=== PATIENT | female | born 1985 | race Caucasian/White ===

== ENCOUNTER 2020-02-23 16:25 | Inpatient (IN) ==
[~2020-02-23 16:25] MED LIST: fentaNYL CITRATE/PF 50 MCG/ML AMPUL ONE
[2020-02-28] MEDS ORDERED: DEXTROSE 5%-LACTATED RINGERS 1,000 ML IV PRN (14:47)
[2020-02-28] MEDS ORDERED: RINGER'S SOLUTION,LACTATED 1,000 ML IV ONE ×2 (14:47→19:18)
[2020-02-28] MEDS ORDERED: ONDANSETRON 4 MG TAB.RAPDIS PO PRN (14:47)
[2020-02-28] MEDS ORDERED: MISOPROSTOL 100 MCG TABLET VG PRN (14:47)
[2020-02-28] MEDS ORDERED: OXYTOCIN/DEXTROSE 5%-WATER 30 UNITS/500 ML BAG IV ONE (14:47)
[2020-02-28 15:32] LABS: Cocaine Ur Negative (NEGATIVE); Urine Barbiturate Negative (NEGATIVE); Urine Benzodiazepines Negative (NEGATIVE); Urine Opiates Negative (NEGATIVE); Urine PCP Negative (NEGATIVE); Urine THC Negative (NEGATIVE)
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
[2020-02-28] MEDS ORDERED: BUPIVACAINE HCL/0.9 % NACL/PF 250 ML EP PRN (17:11)
[2020-02-28] MEDS ORDERED: ONDANSETRON HCL/PF 2 MG/ML VIAL IV PRN (17:11)
[2020-02-28] MEDS ORDERED: NALOXONE HCL 1 MG/1 ML SYRG IV PRN (17:11)
[2020-02-28] MEDS ORDERED: fentaNYL CITRATE/PF 50 MCG/ML AMPUL IT SCH (17:15)
--- NOTE | 2020-02-28 18:02 | ANES ---
Post Anesthesia Assessment - Vital Signs Vitals: Last Vital Signs Temp 36.2 C 02/28/20 14:48 Pulse 82 02/28/20 14:48 Resp 18 02/28/20 14:48 BP 131/82 02/28/20 14:48 Pulse Ox 97 02/28/20 14:48 Airway Patency: Normal - Mental Status Level Of Consciousness: Awake - Pain Level Pain Score: 0 - N/V Assessment Nausea/Vomiting Presence: None Dehydration:: No
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
--- NOTE | 2020-02-28 18:03 | ANES ---
Post Anesthesia Discharge - Transfer of Care Transfer of Care handoff given to nurse: Yes - Anesthesia Post Op Note Anesthesia Post Op Note: Care transferred to OB RN
--- NOTE | 2020-02-28 18:04 | ANES ---
Anesthesia Procedure Note Procedure Note: ANESTHESIA PROCEDURE NOTE Date of Procedure: 02/28/2020 Time of procedure: 1744. Performed by: Khoa Sheldon CRNA Maintenance Technician: None. Preprocedure diagnosis: Active labor. Post procedure diagnosis: Same. Procedure: Insertion of labor epidural. Indications: The patient is a 34-year-old multigravida female in active labor requesting labor epidural for pain management. Findings: See below. Details of the procedure: The patient was placed in a sitting position. Back was prepped with DuraPrep. Patient was then draped in a sterile fashion. Lidocaine 1% was infiltrated to the skin and subcutaneous tissues at the level of the L3 4 interspace. The epidural space was identified using a 18-gauge Tuohy needle with [id number] technique. 20 mcg fentanyl was given intrathecally using a 27 ga. spinal needle. Epidural catheter was inserted without difficulty. Negative test dose was elicited using 5 mL of 1.5% preservative-free lidocaine plus epinephrine 1 200,000. The epidural catheter was then taped and secured in place. EBL: Minimal. Fluids: N/A. Specimen: N/A. Post procedure condition: The patient tolerated the procedure well. No complications were noted. Thank you for this consultation. Suggs CRNA
[2020-02-28] MEDS ORDERED: INSULIN REGULAR, HUMAN 100 UNITS in NORMAL SALINE 100 ML IV PRN ×2 (18:17)
--- NOTE | 2020-02-28 18:17 | PN ---
Progess Note - Interim Date: 02/28/20 Time: 18:15 Narrative: 02/28/20 18:15 Patient comfortable with epidural Vital signs stable. Pitocin at 2 mu/min. FHT: 145 baseline, good [id number]-[id number] variability with occasional variable decelerations contractions q 2-3 min Cervix: 1-2/80/-2 Impression: Intrauterine at 38 6/7 weeks in labor with spontaneous rupture of membranes at around 1230 today. Plan: Continue present plan
[2020-02-28] MEDS ORDERED: TERBUTALINE SULFATE 1 MG/ML VIAL ONE (19:14)
[2020-02-28] MEDS ORDERED: TERBUTALINE SULFATE 1 MG/ML VIAL SC ONE (19:14)
--- NOTE | 2020-02-29 01:36 | OR ---
Operative Report - Dictated Report Narrative: Spontaneous vaginal delivery of vigorously crying viable female at 0124 on 02/29/2020 with Apgars 9 and 9, weighing 3435 g in ERMA position with tight nuchal cord x1. Cord clamping delayed approximately 1 minute Placenta delivered complete, intact, with three vessel cord Estimated blood loss: Less than 50 ml Anesthesia: Epidural Lacerations: None History for MU History for MU Definition: * The number of deliveries resulting in a live the patient experienced prior to current hospitalization * The previous delivery of live twins or any live multiple gestation is considered one live event. *If primagravida or nulliparous is documented select zero for the number of previous live births. Live Events: Live Events: 3
[2020-02-29] MEDS ORDERED: oxyCODONE HCL/ACETAMINOPHEN 1 TAB TABLET PO PRN (01:42)
[2020-02-29] MEDS ORDERED: BENZOCAINE/MENTHOL 81 SPRAY CAN TP PRN (01:42)
[2020-02-29] MEDS ORDERED: OXYTOCIN/DEXTROSE 5%-WATER 30 UNITS/500 ML BAG IV ONE (01:42)
[2020-02-29] MEDS ORDERED: IBUPROFEN 800 MG TABLET PO PRN ×2 (01:42)
[2020-02-29] MEDS ORDERED: GLYCERIN/WITCH HAZEL LEAF 40 APPL BOX TP PRN (01:42)
[2020-02-29] MEDS ORDERED: HYDROCORTISONE 30 APPL TUBE TP PRN (01:42)
[2020-02-29] MEDS ORDERED: SENNOSIDES 8.6 MG TABLET PO PRN (01:42)
[2020-02-29] MEDS ORDERED: BISACODYL 10 MG SUPP.RECT RC PRN (01:42)
[2020-02-29] MEDS: DOCUSATE SODIUM 100 MG CAPSULE PO SCH ×2 (09:53→20:11)
[2020-02-29] MEDS: FERROUS SULFATE 325 MG TABLET PO SCH (09:53)
[2020-02-29] MEDS: ESCITALOPRAM OXALATE 10 MG TAB PO SCH (09:54)
[2020-02-29] MEDS: PRENATAL VITS96/IRON FUM/FOLIC 1 TAB TABLET PO SCH (09:56)
[2020-02-29] MEDS: ASCORBIC ACID 500 MG TABLET PO SCH (09:56)
--- NOTE | 2020-03-01 09:16 | PN ---
Subjective - Date and Time Seen Date: 03/01/20 Time: 09:15 Objective - Vitals Vitals: Last Vital Signs Temp 37 C 03/01/20 06:30 Pulse 74 03/01/20 06:30 Resp 18 03/01/20 06:30 BP 120/74 03/01/20 06:30 Pulse Ox 97 03/01/20 06:30 Patient denies complaints. Lochia wnl abdomen - soft, nontender Uterus -firm, at umbilicus - 1 no calf tenderness Impression: day #1 - s/p spontaneous vaginal delivery. Gestational diabetes-resolved. Bipolar disorder-stable Plan: Continue routine care. Patient desires early discharge and will be discharged this evening. Routine discharge instructions given to patient. Patient instructed to check a fasting and 1 hour postprandial blood sugar the day of her appointment in 3 weeks. Patient instructed to follow-up with her psychiatrist if her bipolar worsens. Cauti Physician Documentation - Urinary Catheter Management Urethral ([place]) Date of Insertion: 02/28/20 Time of Insertion: 18:35 Date of Removal: 02/29/20 Time of Removal: 01:05 Assessment/Plan - Problems/Diagnosis (1) SROM (spontaneous rupture of membranes) Problem: Acute (2) First stage of labor established Problem: Acute (3) Gestational diabetes Problem: Acute Qualifiers: Gestational diabetes mellitus control: insulin-controlled Trimester: third trimester Qualified Code(s): O24.414 - Gestational diabetes mellitus in , insulin controlled (4) Severe obesity with body mass index (BMI) of 35.0 to 39.9 with comorbidity Problem: Chronic
[2020-03-01] MEDS: ASCORBIC ACID 500 MG TABLET PO SCH (09:17)
[2020-03-01] MEDS: DOCUSATE SODIUM 100 MG CAPSULE PO SCH (09:17)
[2020-03-01] MEDS: FERROUS SULFATE 325 MG TABLET PO SCH (09:17)
[2020-03-01] MEDS: PRENATAL VITS96/IRON FUM/FOLIC 1 TAB TABLET PO SCH (09:17)
[2020-03-01] MEDS: ESCITALOPRAM OXALATE 10 MG TAB PO SCH (09:18)
[2020-03-01 12:09] VITALS: BP 121/62
== END 2020-03-01 16:25 | disposition home or self-care (01) | DRG 807 ==
LOC: OB 02-28 14:26
PROVIDERS: ADMIT Obstetrics & Gynecology; ATTEND Obstetrics & Gynecology
CPT/HCPCS: 59025; 80307; 88307; 88888; J2405